=== PATIENT | male | born 1985 | race Asian ===

== ENCOUNTER → 2017-10-14 | Outpatient (CLI) | payer OTHER ==
--- NOTE | 2017-10-14 09:02 | DIAGNOSTIC IMAGING REPORT ---
L LOWER EXT JOINT WITHOUT CLINICAL HISTORY: 32 years-old Male presenting with L ANKLE PAIN, medial pain, history of injury 6 years ago, marker on ankle at site of pain, eval talar dome. TECHNIQUE: Multisequence, multiplanar MR imaging of the left ankle was performed without the use of intravenous contrast. IV contrast: None. COMPARISON: None. FINDINGS: Localizer images: Unremarkable. A marker is in place along the medial malleolus. No subjacent subcutaneous edema. No gross abnormality subjacent to this region in the superficial soft tissues. No bony edema. Anterior tendons including the tibialis anterior, extensor hallucis longus, and extensor digitorum longus normal. Posterior tendons including the tibialis posterior, flexor digitorum longus, and flexor hallucis longus normal. Peroneal longus and brevis normal. Anterior and posterior tibiotalar ligaments intact. Anterior and posterior talofibular ligaments intact. Deltoid ligament intact. Talar Dome normal in appearance without evidence of an osteochondral defect. Articular cartilage grossly intact. Achilles tendon intact. Plantar fascia intact. Normal signal intensity and bulk of the musculature. No large ankle joint effusion. IMPRESSION: Normal MR examination of the ankle. Electronically signed by: Maikel Vallecillo M.D. 10/14/2017 9:00 AM Dictated Date/Time: 10/14/2017 8:50 AM
== END | disposition home or self-care (01) ==
LOC: C.MRI 07:58
PROVIDERS: ATTEND Family Medicine
DX: M25.572 Pain in left ankle and joints of left foot (principal)

== ENCOUNTER → 2018-06-22 | Outpatient (CLI) | payer OTHER | END | disposition home or self-care (01) | LOC: C.LAB 09:31 | PROVIDERS: ATTEND Obstetrics & Gynecology | DX: N50.9 Disorder of male genital organs, unspecified (principal) ==